=== PATIENT | female | born 1990 | race Caucasian/White ===

== ENCOUNTER 2021-03-18 02:46 | Emergency (ER) | payer OTHER ==
[~2021-03-18] VITALS: Ht 188 cm; Wt 95.2 kg
== END 2021-03-18 03:47 | disposition home or self-care (01) ==
LOC: ER 02:46
DX: J06.9 Acute upper respiratory infection, unspecified (principal); F17.290 Nicotine dependence, other tobacco product, uncomplicated
CPT/HCPCS: 71045; 99283-25